=== PATIENT | female | born 1980 | race Two or more races ===

== ENCOUNTER 2023-09-28 12:18 | Emergency (ER) | payer OTHER ==
[~2023-09-28] VITALS: Ht 162.6 cm; Wt 89.8 kg
[2023-09-28] MEDS ORDERED: TOPROL XL50 M1 (12:49)
[2023-09-28] MEDS ORDERED: TETRACAINE HCL 20 DR/ML DROPS OP STA (16:22)
== END 2023-09-28 16:37 | disposition home or self-care (01) ==
LOC: ER 12:19
DX: S05.01XA Injury of conjunctiva and corneal abrasion without foreign body, right eye, initial encounter (principal); X58.XXXA Exposure to other specified factors, initial encounter; Y93.89 Activity, other specified; Y92.89 Other specified places as the place of occurrence of the external cause; Y99.8 Other external cause status